=== PATIENT | male | born 1980 | race Caucasian/White ===

== ENCOUNTER 2017-12-01 02:44 | Emergency (ER) | payer OTHER ==
[~2017-12-01] VITALS: Ht 170.2 cm; Wt 86.2 kg
[~2017-12-01 02:44] MED LIST: ADDERALL 15 MG15 MG PO; ADDERALL 30 MG30 MG PO; ADDERALL XR30 MG PO; ADDERALL30 MG PO; AMOXICILLIN500 M1 PO; CLONAZEPAM1 MG PO; DIVALPROEX SOD500 M1 PO; DIVALPROEX SOD500 M2 PO; DIVALPROEX SOD500 MG PO; DOXEPIN HCL100 MG PO; DOXEPIN50 MG PO; FLUOXETINE HYDR20 M1 PO; FLUOXETINE20 MG PO; IBUPROFEN800 MG PO; MIXED AMPHETAMI30 M1 PO; MOTRIN800 MG PO; NICORELIEF4 MG PO; PERCOCET 325 MG1 TA2 PO; PROZAC20 M1 PO; PROZAC20 MG PO; REMERON15 M2 PO; SOMA 350MG TAB350 MG PO; SOMA350 MG PO; WELLBUTRIN SR100 M2 PO; XANAX1 MG PO; XANAX2 MG PO
[2017-12-01 02:52] VITALS: BP 130/87
[2017-12-01] MEDS ORDERED: PROZAC40 M1 PO (03:10)
--- NOTE | 2017-12-01 03:13 | ED GENERAL ADULT ---
History of Present Illness General Chief Complaint: General Adult Stated Complaint: "KEO BEEN OFF Y MEDS FOR A FEW DAYS" Source: patient, old records Exam Limitations: no limitations Vital Signs & Intake/Output Vital Signs & Intake/Output Vital Signs Date Time Temp Pulse Resp B/P B/P Pulse O2 O2 Flow FiO2 Mean Ox Delivery Rate 12/01 0253 96 Room Air 12/01 0252 98.5 96 18 130/87 126 Room Air Allergies Coded Allergies: hydrocodone (Mild, DIFF BREATHING 11/24/16) Reconcile Medications Alprazolam (Xanax) 0.5 MG TABLET 1 TAB PO TID anxiety Bupropion HCl (Wellbutrin Sr) 100 MG TABLET.ER 200 MG PO 0800 anti-depressant Divalproex Sodium 500 MG TABLET.DR 1,500 MG PO 1999 stabilize moods Fluoxetine HCl (Prozac) 40 MG CAPSULE 1 CAP PO DAILY depression Mirtazapine (Remeron) 15 MG TABLET 7.5 MG PO 1999 sleep induction Nicotine Polacrilex (Nicorelief) 4 MG GUM 4 MG PO Q2P PRN NICOTINE CRAVINGS Triage Note: PT FROM HOME C/O MED REFILL. PT STATES ON 11/24/17 HE HAD AN APPT AND WAS UNABLE TO MAKE IT, RAN OUT OF MEDICATION. MEDICATIONS INCLUDE : ADDERALL, PROZAC, DEPOKOTE, XANEX, KLONOPIN. NO OTHER COMPLAINTS AT THIS TIME. VSS. Triage Nurses Notes Reviewed? yes Onset: Last week Duration: day(s):, constant, continues in ED Timing: recent history Severity: moderate, severe No Modifying Factors: none HPI: 1 week prior to admission patient reports missing his psychiatric appointment and medication refill. He requests refill of Adderall Prozac and Xanax. Reports his brother takes his medication. He is supposed to be taking Depakote and does not secondary to the feeling of being in a fog. He is been taking an old prescription of Xanax and is not currently prescribed to help with anxiety. He is a history of benzodiazepine abuse. Reports not being able to have an appointment until December 22. Denies fever chills nausea vomiting diarrhea abdominal pain chest pain shortness of breath headache dysuria rash bleeding suicidal ideation homicidal ideation hallucination. The patient was updated that we do not refill Adderall prescriptions. Past History Travel History Traveled to [place] past 21 day No Medical History Any Pertinent Medical History? see below for history Neurological: seizure (claimed hx benzo withdrawal sz) EENT: NONE Cardiovascular: NONE Respiratory: NONE Gastrointestinal: NONE Hepatic: NONE Renal: NONE Musculoskeletal: NONE Psychiatric: alcohol dependence, anxiety, depression, substance abuse Endocrine: NONE Blood Disorders: NONE Cancer(s): NONE MOMD TEACHER/Reproductive: NONE History of MRSA: No History of VRE: No History of CDIFF: No Surgical History Surgical History: none Psychosocial History Who do you live with Mother Services at Home None What is your primary language Hong Konger Tobacco Use: Current Daily Use Daily Tobacco Use Amount/Type: => 5 Cigarettes daily Family History Family History, If Any: FATHER Alcoholism MOTHER FHx: bipolar disorder Hx Contributory? No Review of Systems Review of Systems Constitutional: Reports: no symptoms. EENTM: Reports: no symptoms. Respiratory: Reports: no symptoms. Cardiovascular: Reports: no symptoms. GI: Reports: no symptoms. Genitourinary: Reports: no symptoms. Musculoskeletal: Reports: no symptoms. Skin: Reports: no symptoms. Neurological/Psychological: Reports: see HPI, anxiety, emotional problems. Hematologic/Endocrine: Reports: no symptoms. Immunologic/Allergic: Reports: no symptoms. All Other Systems: Reviewed and Negative Physical Exam Physical Exam General Appearance: well developed/nourished, alert, awake, anxious, mild distress Head: atraumatic, normal appearance Eyes: Bilateral: normal appearance, PERRL, EOMI. Ears, Nose, Throat: normal pharynx, normal ENT inspection, hearing grossly normal Neck: normal inspection, supple, full range of motion, no midline tenderness Respiratory: normal breath sounds, chest non-tender, no respiratory distress, quiet respiration, lungs clear Cardiovascular: regular rate/rhythm, normal peripheral pulses, norml femoral pulses equa Peripheral Pulses: 4+ carotid (R), 4+ carotid (L) Gastrointestinal: normal bowel sounds, soft, non-tender, no organomegaly Back: normal inspection, normal range of motion Extremities: normal inspection, normal capillary refill, normal range of motion, no edema Neurologic/Psych: no motor/sensory deficits, awake, alert, oriented x 3, normal gait, hand cloth cutter II-XII nml as tested Reflexes: 2+: bicep (R), bicep (L). Skin: intact, normal color, warm/dry Lymphatic: no anterior cervical kirsten Core Measures ACS in differential dx? No CVA/TIA Diagnosis: No Sepsis Present: No Sepsis Focused Exam Completed? No Progress Differential Diagnoses I considered the following diagnoses in my evaluation of the patient: drug seeking behavior Plan of Care: refill med Initial ED EKG: none Departure Departure Time of Disposition: 307 Disposition: HOME OR SELF CARE Condition: Stable Clinical Impression Primary Impression: Encounter for medication refill Referrals: Unknown (PCP/Family) Additional Instructions: Follow up with your provider at [facility] Departure Forms: Customer Survey General Discharge Information Prescriptions: Current Visit Scripts Fluoxetine HCl (Prozac) 1 CAP PO DAILY #10 CAP Alprazolam (Xanax) 1 TAB PO TID #10 TAB Critical Care Note Critical Care Note Critical Care Time: non-applicable
[2017-12-01] MEDS ORDERED: XANAX0.5 M1 PO (03:17)
== END 2017-12-01 03:19 ==
LOC: ERH 02:44
DX: Z76.0 Encounter for issue of repeat prescription (principal)
CPT/HCPCS: 99281

== ENCOUNTER 2017-12-03 09:01 | Emergency (ER) | payer OTHER ==
[~2017-12-03 09:01] MED LIST changes: +PROZAC40 M1 PO; +XANAX0.5 M1 PO
--- NOTE | 2017-12-03 09:36 | ED GENERAL ADULT ---
History of Present Illness General Chief Complaint: ETOH/Drug Related Complaint Stated Complaint: OD Source: patient, EMS Exam Limitations: no limitations Vital Signs & Intake/Output Vital Signs & Intake/Output Vital Signs Date Time Temp Pulse Resp B/P B/P Pulse O2 O2 Flow FiO2 Mean Ox Delivery Rate 12/03 0927 97.6 90 20 129/78 99 Room Air Allergies Coded Allergies: hydrocodone (Mild, DIFF BREATHING 11/24/16) Reconcile Medications Alprazolam (Xanax) 0.5 MG TABLET 1 TAB PO TID anxiety Bupropion HCl (Wellbutrin Sr) 100 MG TABLET.ER 200 MG PO 0800 anti-depressant Divalproex Sodium 500 MG TABLET.DR 1,500 MG PO 1999 stabilize moods Fluoxetine HCl (Prozac) 40 MG CAPSULE 1 CAP PO DAILY depression Mirtazapine (Remeron) 15 MG TABLET 7.5 MG PO 1999 sleep induction Nicotine Polacrilex (Nicorelief) 4 MG GUM 4 MG PO Q2P PRN NICOTINE CRAVINGS Triage Note: BIBA FOUND ON STREET UNRESPONSIVE WITH BOTTLES OF ADDRELL, ALPRAZOLAM, FLUOXETINE, AND AMPHETAMINE SALTS. GIVEN 1.2MG NARCAN BY EMS. AGITATED AND AGGRESSIVE ON ARRIVAL. SECURITY AT BEDSIDE. Triage Nurses Notes Reviewed? yes HPI: 37-year-old male brought by EMS. He was found passed out in his car. EMS tried Narcan. They reported improvement of mental status with sternal rub. When the patient arrived he was awake but somnolent. He woke up, give a history that he drank alcohol last night. He reports that he usually takes Xanax. He denies being suicidal homicidal or taking extra medications. He denies physical trauma or fall. He was found in his car by EMS and he denies any injury. Past History Travel History Traveled to [place] past 21 day No Medical History Any Pertinent Medical History? see below for history Neurological: seizure (claimed hx benzo withdrawal sz) EENT: NONE Cardiovascular: NONE Respiratory: NONE Gastrointestinal: NONE Hepatic: NONE Renal: NONE Musculoskeletal: NONE Psychiatric: alcohol dependence, anxiety, depression, substance abuse Endocrine: NONE Blood Disorders: NONE Cancer(s): NONE BRAZER FURNACE/Reproductive: NONE History of MRSA: No History of VRE: No History of CDIFF: No Surgical History Surgical History: none Psychosocial History Who do you live with Mother Services at Home None What is your primary language Vincentian Family History Family History, If Any: FATHER Alcoholism MOTHER FHx: bipolar disorder Hx Contributory? No Review of Systems Review of Systems Constitutional: Denies: chills, diaphoresis, fever. EENTM: Denies: blurred vision, double vision, visual changes. Respiratory: Denies: cough, hemoptysis, orthopnea. Cardiovascular: Denies: chest pain, edema. GI: Denies: abdominal pain, bloating, constipation, diarrhea. Genitourinary: Denies: dysuria. Musculoskeletal: Denies: back pain, joint pain, joint swelling. Skin: Denies: cysts, change in skin color, change in hair/nails. Neurological/Psychological: Reports: anxiety, depressed, emotional problems. Denies: cognitive dysfunction, confusion. Hematologic/Endocrine: Reports: no symptoms. Physical Exam Physical Exam General Appearance: well developed/nourished, no apparent distress, awake, somunlent Head: atraumatic, normal appearance Eyes: Bilateral: PERRL, EOMI, pale conjunctivae. Ears, Nose, Throat: normal pharynx, normal ENT inspection Neck: normal inspection, supple Respiratory: chest non-tender, no respiratory distress Cardiovascular: regular rate/rhythm Gastrointestinal: normal bowel sounds, soft, non-tender Back: normal inspection, normal range of motion Extremities: normal inspection, normal capillary refill, normal range of motion, no edema Skin: normal color, warm/dry Comments: Physical exam reveals a slightly intoxicated appearing gentleman no external signs of trauma or injury. No signs of head injury. He is completely awake, talking. He denies using heroin. According to EMS there was no response to Narcan anyway. He only responded to painful stimulus. Core Measures ACS in differential dx? No CVA/TIA Diagnosis: No Sepsis Present: No Sepsis Focused Exam Completed? No Progress Differential Diagnoses . Plan of Care: Orders Procedure Date/time Status Add-on Test (ER Only) 12/03 1023 Active Patient Safety Monitor 12/03 0936 Active TROPONIN LEVEL 12/03 0936 Complete EKG 12/03 0934 Active ETHANOL 12/03 0932 Complete COMPREHENSIVE METABOLIC PANEL 12/03 0932 Complete CBC WITHOUT DIFFERENTIAL 12/03 0932 Complete URINE DRUG SCREEN FOR ER ONLY 12/03 0925 Complete URINALYSIS 12/03 0925 Complete Laboratory Tests 12/03/17 0936: Anion Gap 15, Estimated GFR > 60, BUN/Creatinine Ratio 20.0, Glucose 127 H, Calcium 10.1, Total Bilirubin 1.5 H, AST 23, ALT 45, Alkaline Phosphatase 86, Troponin I < 0.01, Total Protein 8.0, Albumin 4.8, Globulin 3.2, Albumin/ Globulin Ratio 1.5, CBC w Diff NO MAN DIFF REQ, RBC 5.25, MCV 88.7, MCH 30.4, MCHC 34.2, RDW 13.3, MPV 8.1, Gran % 58.9, Lymphocytes % 26.5, Monocytes % 10.7 H, Eosinophils % 3.5, Basophils % 0.4, Absolute Granulocytes 5.4, Absolute Lymphocytes 2.4, Absolute Monocytes 1.0 H, Absolute Eosinophils 0.3, Absolute Basophils 0, Serum Alcohol < 10.0 12/03/17 0934: Troponin I Cancelled 12/03/17924: Urine Opiates Screen < 100, Methadone Screen < 40, Barbiturate Screen < 60, Ur Phencyclidine Scrn < 6.00, Amphetamines Screen , U Benzodiazepines Scrn > 800 H, Urine Cocaine Screen > 1000 H, Urine Cannabis Screen < 5.00 12/03/17924: Amphetamines Grp GC/MS Pending, U Amphet Custody Pending, Methamphetamine GC/MS Pending, Urinalysis LIGHT H, Urine Color YEL, Urine Clarity CLEAR, Urine pH 5.5 , Ur Specific [place] >= 1.030, Urine Protein TRACE H, Urine Ketones TRACE H, Urine Nitrite NEG, Urine Bilirubin NEG@ICTO, Urine Urobilinogen 0.2, Ur Leukocyte Esterase NEG, Ur Microscopic SEDIMENT EXAMINED, Urine RBC RARE, Urine WBC 1-3 H, Ur Epithelial Cells RARE, Urine Bacteria FEW H, Granular Casts RARE H, Urine Mucus MANY H, Micro UA Comment MORE INFO: H, Urine Hemoglobin NEG, Urine Glucose NEG Initial ED EKG: normal axis, normal intervals, normal p-waves, normal QRS complex, NSR, nonspecific ST T wave chg Prior EKG: unchanged (from 08/03/14) Comments: Accu-Chek was normal. EMS. 1018 patient is awake alert and oriented. He is not intoxicated. Urine drug screen is positive for multiple drugs. Patient has no history or signs of trauma. We refer her alcohol level. 1114 patient is awake alert and oriented. Not suicidal homicidal. Not intoxicated. Lab work is back shows the patient has benzos in his system. He admits to cocaine and alcohol last night. The patient is regularly supposed to take benzos, has prescriptions with him. The patient is not suicidal homicidal. He denies being depressed or anxious. He reports that he sees a psychiatrist. He was found sleeping in his car which was parked. He reports that he felt he was drunk last night so he pulled over. He reports lack of sleep. The patient was less arousable because of lack of sleep, alcohol and benzos in the system. Currently he is completely awake and alert. For safety I will discharge him with a sober ride. But the patient is completely sober with no signs of intoxication. No suicidal or homicidal behavior. No signs of trauma. Return warnings given. Departure Departure Time of Disposition: 1114 Disposition: HOME OR SELF CARE Condition: Stable Clinical Impression Primary Impression: Substance abuse Referrals: Unknown (PCP/Family) Additional Instructions: Return for any new or concerning symptoms. Return if you feel like harming herself or anyone else. Do not drive if you drink alcohol. Do not take Xanax if you take alcohol. Do not drive if he takes Xanax. Do not use recreational drugs. Departure Forms: Customer Survey General Discharge Information Critical Care Note Critical Care Note Critical Care Time: non-applicable
[2017-12-03 09:52] LABS: ABSOLUTE BASOPHIL COUNT 0 /CUMM (0.0-0.2); ABSOLUTE EOSINOPHIL COUNT 0.3 /CUMM (0.0-0.7); ABSOLUTE GRANULOCYTE CT 5.4 /CUMM (1.4-6.5); ABSOLUTE LYMPH COUNT 2.4 /CUMM (1.2-3.4); BASOPHIL % 0.4 % (0.0-2.0); EOSINOPHIL % 3.5 % (0-5); GRANULOCYTE % 58.9 % (42.2-75.2); HEMATOCRIT 46.5 % (42-52); MEAN CORPUSCULAR HGB 30.4 PG (27.0-31.0); MEAN CORPUSCULAR HGB CONC 34.2 G/DL (33.0-37.0); MEAN CORPUSCULAR VOLUME 88.7 FL (80.0-94.0); MEAN PLATELET VOLUME 8.1 FL (7.4-10.4); PLATELET COUNT 353 /CUMM (130-400); RBC DISTRIBUTION WIDTH 13.3 % (11.5-14.5); RED BLOOD CELL CT 5.25 /CUMM (4.70-6.10); WHITE BLOOD CELL COUNT 9.2 /CUMM (4.8-10.8)
[2017-12-03 11:31] VITALS: BP 122/84
== END 2017-12-03 11:36 ==
LOC: ERH 09:01
PROVIDERS: Emergency Medicine
DX: F10.10 Alcohol abuse, uncomplicated (principal); F19.10 Other psychoactive substance abuse, uncomplicated
CPT/HCPCS: 80324; 80307; 81001; 93005; 93010; G0480